=== PATIENT | female | born 1990 ===

== ENCOUNTER 2023-03-30 10:47 | Outpatient (CLI) | payer OTHER | END 2023-03-30 10:51 | disposition home or self-care (01) | LOC: SONOGRAMA 10:47 | PROVIDERS: ATTEND Pathology Anatomic Pathology & Clinical Pathology | DX: D34 Benign neoplasm of thyroid gland (principal); D44.0 Neoplasm of uncertain behavior of thyroid gland; E07.9 Disorder of thyroid, unspecified; E04.9 Nontoxic goiter, unspecified ==